=== PATIENT | female | born 1980 | race African-American/Black ===

== ENCOUNTER 2016-02-08 19:14 | Emergency (ER) ==
[2016-02-08] MEDS ORDERED: ZOFRAN IV ONE (19:22)
--- NOTE | 2016-02-08 19:43 | PROVIDER DOCUMENTATION ---
[id number] Abuse/Overdose - General Stated Complaint: OD Time Seen by Provider: 02/08/16 19:20 Source: family, RN/MD Allergies/Adverse Reactions: Allergies Allergy/AdvReac Type Severity Reaction Status Date / Time tramadol AdvReac Intermediate ITCHING Verified 10/06/15 17:40 Home Medications: Paroxetine HCl 1 tab PO DAILY 01/03/16 - History of Present Illness-Drug/Alcohol Nature of Presenting Problem: 35 year old F presents to the ED POV with a cc of altered mental status. Pt told RN that she took 15-20 Paxils. Mother at bedside stating that she talked to co-workers today and they said everything was fine. Mother states that she received a text message saying "everything would be better without her" and "I' m tired." This episode of drinking or use began:: just prior to arrival Severity: reports: moderate Review of Systems - Adult - REVIEW OF SYSTEMS - ADULT Constitutional: denies: chills, fever Eyes: reports: no symptoms reported Ears, Nose, Mouth & Throat: reports: no symptoms reported Cardiovascular: denies: chest pain, palpitations Respiratory: denies: cough, shortness of breath Gastrointestinal: denies: nausea, vomiting Genitourinary: reports: no symptoms reported Musculoskeletal: reports: no symptoms reported Integumentary: reports: no symptoms reported Neurological: reports: no symptoms reported Psychiatric: reports: no symptoms reported Endocrine: reports: no symptoms reported Hematologic/Lymphatic: reports: no symptoms reported Allergic/Immunologic: reports: no symptoms reported All Other Systems: Reviewed and Negative Past History - Adult - PAST MEDICAL HISTORY-ADULT Review of Records: reports: Nursing Assessment Review, Medications Reviewed Major Childhood Illnesses: reports: denies history Cardiovascular: reports: HTN Gastrointestinal: reports: cholelithiasis Obstetrical/Gynecological: reports: other (c section) Psychiatric: reports: depression (just started on paxil) - PRIOR SURGERIES/PROCEDURES Surgical/Procedure History: reports: - PRIOR HOSPITALIZATIONS Prior Hospitalizations: reports: for other non-related - IMMUNIZATION STATUS Childhood Immunizations: UTD Flu Vaccine: See Nurse Assessment - FAMILY HISTORY Family History: reviewed, not pertinent - SOCIAL HISTORY Smoking: non-smoker Substance Use: none/never Alcohol Use Frequency: occasionally Physical Exam-General - PHYSICAL EXAM-ADULT Initial Vital Signs Reviewed: Yes - CONSTITUTIONAL General Appearance: lethargic - RESPIRATORY Respiratory: chest non-tender, lungs clear, normal breath sounds - CARDIOVASCULAR Cardiovascular: normal peripheral pulses, regular rate, rhythm, no edema - GASTROINTESTINAL (ABDOMEN) Abdominal Exam: normal bowel sounds, non tender, soft - SKIN Integumentary: normal color, normal turgor, warm/dry - PSYCHIATRIC Psych/Mental Status: normal mood/affect, normal thought content, normal thought process, oriented x 3 Progress - PLAN OF CARE/RESULTS Progress/Plan/Lab Results: plan of care: imaging, labs, medications, EKG, psych consult Orders Category Date Time Status Cardiac Monitoring DIRECTED Care 02/08/16 19:21 Active Finger Stick Blood Sugar (ED) DIRECTED Care 02/08/16 19:21 Active Saline Loc NOW Care 02/08/16 19:21 Active CHEST-PORTABLE [RAD] Stat Exams 02/08/16 19:21 Taken HEAD W/O CONTRAST [CT] Stat Exams 02/08/16 19:21 Taken ABG [RESP] Routine Lab 02/08/16 20:05 Completed ACETAMINOPHEN [TDM] Stat Lab 02/08/16 19:20 Completed ALCOHOL BLOOD Stat Lab 02/08/16 19:20 Completed CBC WITH ELECTRONIC DIFF [HEME] Stat Lab 02/08/16 19:20 Completed CK PROFILE [SP CHEM] Stat Lab 02/08/16 19:20 Completed COMPREHENSIVE METABOLIC PANEL [CHEM] Stat Lab 02/08/16 19:20 Completed PROTIME WITH INR [COAG] Stat Lab 02/08/16 19:20 Completed PTT [COAG] Stat Lab 02/08/16 19:20 Completed SALICYLATES [TDM] Stat Lab 02/08/16 19:20 Completed TROPONIN T Stat Lab 02/08/16 19:20 Completed TSH Stat Lab 02/08/16 19:20 Completed URINALYSIS W/POSS RFLX CULT [URINALYSIS] Stat Lab 02/08/16 17:25 Completed URINE DRUG SCREEN Stat Lab 02/08/16 17:25 Completed Diphenhydramine [Benadryl] Med 02/08/16 20:08 Discontinued 25 mg IV NOW ONE Ketorolac [Toradol] Med 02/08/16 20:08 Discontinued 30 mg IV NOW ONE Ondansetron [Zofran] Med 02/08/16 19:22 Discontinued 8 mg IV NOW ONE Prochlorperazine [Compazine] Med 02/08/16 20:08 Discontinued 10 mg IV NOW ONE Pulse Oximetry Stat Oth 02/08/16 19:21 Active EKG [EKG] Stat Ther 02/08/16 19:21 Ordered Laboratory Tests 02/08/16 02/08/16 02/08/16 17:25 17:25 19:20 WBC RBC Hgb Hct MCV MCH MCHC RDW Std Deviation Plt Count MPV Immature Gran % (Auto) Neut % (Auto) Lymph % (Auto) [place] % (Auto) Eos % (Auto) Baso % (Auto) Immature Gran # (Auto) Neut # (Auto) Lymph # (Auto) [place] # (Auto) Eos # (Auto) Baso # (Auto) PT INR PTT (Actin FS) Specimen Type Sample Site pH pCO2 pO2 HCO3 Base Excess Oxyhemoglobin ABG O2 Sat (Calculated) ABG O2 Saturation ABG Carboxyhemoglobin ABG Methemoglobin Fernandez Test A-a O2 Difference Total Hemoglobin Lactate Blood Gas Modality FiO2 % Sodium Potassium Chloride Carbon Dioxide Anion Gap BUN Creatinine Estimated GFR/1.73 m2 BUN/Creatinine Ratio Glucose POC Glucose Calculated Osmolality Calcium Total Bilirubin AST ALT Alkaline Phosphatase Creatine Kinase Creatine Kinase Index CK-MB (CK-2) Troponin T Total Protein Albumin Globulin Albumin/Globulin Ratio TSH 3.48 Urine Source CATH Urine Color YELLOW Urine Turbidity CLEAR Urine pH 5.5 Ur Specific [place] 1.016 Urine Protein NEGATIVE Ur Glucose (Stick) NEGATIVE Ur Ketones (Stick) NEGATIVE Urine Blood MODERATE A Urine Nitrite NEGATIVE Urine Bilirubin NEGATIVE Urobilinogen Dipstick NORMAL Urine Leukocytes NEGATIVE Urine WBC (Auto) <10 Urine RBC (Auto) 20-40 A U Epithel Cells (Auto) <10 Urine Bacteria (Auto) NEGATIVE Salicylates Urine Opiates Screen NONE DETECTED Ur Oxycodone Screen NONE DETECTED Ur Methadone, Qual NONE DETECTED Acetaminophen Ur Barbiturates Screen NONE DETECTED Ur Phencyclidine Scrn NONE DETECTED Ur Amphetamines Screen NONE DETECTED U Benzodiazepines Scrn NONE DETECTED Urine Cocaine Screen NONE DETECTED U Cannabinoids Screen PRESUMPTIVE POSITIVE A Plasma/Serum Ethyl Alc 02/08/16 02/08/16 02/08/16 19:20 19:20 19:20 WBC 17.22 H RBC 5.65 H Hgb 14.9 Hct 42.6 MCV 75.4 L MCH 26.4 L MCHC 35.0 RDW Std Deviation 14.3 Plt Count 438 H MPV 9.0 Immature Gran % (Auto) 0.5 Neut % (Auto) 54.7 Lymph % (Auto) 35.7 [place] % (Auto) 7.4 Eos % (Auto) 1.4 Baso % (Auto) 0.3 Immature Gran # (Auto) 0.08 H Neut # (Auto) 9.42 H Lymph # (Auto) 6.15 H [place] # (Auto) 1.27 H Eos # (Auto) 0.24 Baso # (Auto) 0.06 PT INR PTT (Actin FS) Specimen Type Sample Site pH pCO2 pO2 HCO3 Base Excess Oxyhemoglobin ABG O2 Sat (Calculated) ABG O2 Saturation ABG Carboxyhemoglobin ABG Methemoglobin Fernandez Test A-a O2 Difference Total Hemoglobin Lactate Blood Gas Modality FiO2 % Sodium 140 Potassium 3.8 Chloride 100 Carbon Dioxide 21 L Anion Gap 19 BUN 11 Creatinine 0.9 Estimated GFR/1.73 m2 > 60 BUN/Creatinine Ratio 12 Glucose 86 POC Glucose Calculated Osmolality 278 Calcium 9.8 Total Bilirubin 0.22 AST 18 ALT 15 Alkaline Phosphatase 82 Creatine Kinase 311 H Creatine Kinase Index 0.6 CK-MB (CK-2) 1.80 Troponin T Total Protein 8.0 Albumin 4.2 Globulin 3.8 Albumin/Globulin Ratio 1.1 TSH Urine Source Urine Color Urine Turbidity Urine pH Ur Specific [place] Urine Protein Ur Glucose (Stick) Ur Ketones (Stick) Urine Blood Urine Nitrite Urine Bilirubin Urobilinogen Dipstick Urine Leukocytes Urine WBC (Auto) Urine RBC (Auto) U Epithel Cells (Auto) Urine Bacteria (Auto) Salicylates < 3.00 L Urine Opiates Screen Ur Oxycodone Screen Ur Methadone, Qual Acetaminophen < 1.2 L Ur Barbiturates Screen Ur Phencyclidine Scrn Ur Amphetamines Screen U Benzodiazepines Scrn Urine Cocaine Screen U Cannabinoids Screen Plasma/Serum Ethyl Alc 02/08/16 02/08/16 02/08/16 19:20 19:20 20:05 WBC RBC Hgb Hct MCV MCH MCHC RDW Std Deviation Plt Count MPV Immature Gran % (Auto) Neut % (Auto) Lymph % (Auto) [place] % (Auto) Eos % (Auto) Baso % (Auto) Immature Gran # (Auto) Neut # (Auto) Lymph # (Auto) [place] # (Auto) Eos # (Auto) Baso # (Auto) PT 10.1 INR 0.95 PTT (Actin FS) 24.9 Specimen Type VENOUS Sample Site R RADIAL pH 7.46 H pCO2 36 pO2 41 L* HCO3 25.8 Base Excess 2.0 Oxyhemoglobin 74.9 L* ABG O2 Sat (Calculated) 16.0 ABG O2 Saturation 78.6 L ABG Carboxyhemoglobin 3.10 H ABG Methemoglobin 1.5 Fernandez Test YES A-a O2 Difference 64.0 Total Hemoglobin 15.2 Lactate 1.40 Blood Gas Modality ROOM AIR FiO2 % 21.0 Sodium Potassium Chloride Carbon Dioxide Anion Gap BUN Creatinine Estimated GFR/1.73 m2 BUN/Creatinine Ratio Glucose POC Glucose Calculated Osmolality Calcium Total Bilirubin AST ALT Alkaline Phosphatase Creatine Kinase Creatine Kinase Index CK-MB (CK-2) Troponin T < 0.010 Total Protein Albumin Globulin Albumin/Globulin Ratio TSH Urine Source Urine Color Urine Turbidity Urine pH Ur Specific [place] Urine Protein Ur Glucose (Stick) Ur Ketones (Stick) Urine Blood Urine Nitrite Urine Bilirubin Urobilinogen Dipstick Urine Leukocytes Urine WBC (Auto) Urine RBC (Auto) U Epithel Cells (Auto) Urine Bacteria (Auto) Salicylates Urine Opiates Screen Ur Oxycodone Screen Ur Methadone, Qual Acetaminophen Ur Barbiturates Screen Ur Phencyclidine Scrn Ur Amphetamines Screen U Benzodiazepines Scrn Urine Cocaine Screen U Cannabinoids Screen Plasma/Serum Ethyl Alc 02/08/16 20:06 WBC RBC Hgb Hct MCV MCH MCHC RDW Std Deviation Plt Count MPV Immature Gran % (Auto) Neut % (Auto) Lymph % (Auto) [place] % (Auto) Eos % (Auto) Baso % (Auto) Immature Gran # (Auto) Neut # (Auto) Lymph # (Auto) [place] # (Auto) Eos # (Auto) Baso # (Auto) PT INR PTT (Actin FS) Specimen Type Sample Site pH pCO2 pO2 HCO3 Base Excess Oxyhemoglobin ABG O2 Sat (Calculated) ABG O2 Saturation ABG Carboxyhemoglobin ABG Methemoglobin Fernandez Test A-a O2 Difference Total Hemoglobin Lactate Blood Gas Modality FiO2 % Sodium Potassium Chloride Carbon Dioxide Anion Gap BUN Creatinine Estimated GFR/1.73 m2 BUN/Creatinine Ratio Glucose POC Glucose 82 Calculated Osmolality Calcium Total Bilirubin AST ALT Alkaline Phosphatase Creatine Kinase Creatine Kinase Index CK-MB (CK-2) Troponin T Total Protein Albumin Globulin Albumin/Globulin Ratio TSH Urine Source Urine Color Urine Turbidity Urine pH Ur Specific [place] Urine Protein Ur Glucose (Stick) Ur Ketones (Stick) Urine Blood Urine Nitrite Urine Bilirubin Urobilinogen Dipstick Urine Leukocytes Urine WBC (Auto) Urine RBC (Auto) U Epithel Cells (Auto) Urine Bacteria (Auto) Salicylates Urine Opiates Screen Ur Oxycodone Screen Ur Methadone, Qual Acetaminophen Ur Barbiturates Screen Ur Phencyclidine Scrn Ur Amphetamines Screen U Benzodiazepines Scrn Urine Cocaine Screen U Cannabinoids Screen Plasma/Serum Ethyl Alc Vital Signs - 24 hr 02/08/16 19:46 Pulse Rate 114 H Respiratory 19 Rate Blood Pressure 142/92 O2 Sat by Pulse 100 Oximetry Pt given results and will be d/c home w/o rx to follow up with PCP. Pt verbally understood instructions. PT remained clinically stable throughout the course of the ED stay and will return if symptoms worsen. - REASSESSMENT Reassessment #1 Time Reassessed: 20:08 (Pt c/o a headache behind bilateral eye that reminds her of a migraine. PT is photophobic with towel over eye. Benadryl, Compazine, and Tordol will be ordered. ) Reassessment #2 Time Reassessed: 20:42 (headache resolved, pt awake and alert talking normally. ) Status: improving - PSYCHIATRIC Psych patient progress: pt will sign contract for safety and be discharged home with mother. - EKG 1 Time of EKG reading by physician:: 19:40 EKG Read and Signed by:: Jesús Franklin EKG Interpretation (*Must complete 3 of following elements*): Normal Rate: 126 Rhythm: sinus tachycardia [place]: normal - XRAY 1 XRAY Study: Chest Impression: Normal XRAY Interpretation: NAP: Dr. Franklin - CT/MRI 1 CT Study: Head (NAP intracranially. Bilateral miaxillary and right ethmoid sinus mucosal dz.: Dr. Sheffield.) - CONSULTS/PCP/HOSPITALIST Notification #1 *Consult/PCP/Hospitalist*: DMW Time Discussed: 00:07 Consult Disposition: other (pt would like to contract for safety and will be sent home with mother) Departure - Departure Time of Disposition Order: 00:25 DIAGNOSIS: Overdose Qualifiers: Encounter type: initial encounter Injury intent: intentional self-harm Qualified Code(s): T50.902A - Poisoning by unspecified drugs, medicaments and biological substances, intentional self-harm, initial encounter Disposition: HOME 01 Certified Medical Emergency: Emergent Condition: Good Attestation - Scribe Verification/Attestation Scribe:: Lamar Botello Acting as Scribe for:: Jesús Franklin Scribe documention review:: This chart was documented by a scribe and accurately reflects the service the provider performed and the decisions made by the provider. Physician Attestation - Physician Attestation I, the provider, attest to the following statement:: Jesús Franklin Physician documentation Attestation:: This documentation recorded by the scribe accurately reflects the service I personally performed and the decisions made by me.
[2016-02-08 19:58] LABS: MANUAL DIFF NEEDED? NO
[2016-02-08 19:58] LABS: URINE CULTURE NEEDED? NO; URINE MICRO REVIEW NEEDED? NO; URINE SOURCE CATH
[2016-02-08 20:01] LABS: BASO% 0.3 % (0.0-0.8); EOS# 0.24 X1000 (0.0-0.7); EOS% 1.4 % (0.0-10.0); HEMATOCRIT 42.6 % (37.0-47.0); HEMOGLOBIN 14.9 g/dL (12.0-16.0); IMM GRAN# 0.08 X1000 (0.0-0.04); IMM GRAN% 0.5 % (0.0-0.5); LYMPH# 6.15 X1000 (1.2-3.4); LYMPH% 35.7 % (20.5-51.1); MCH 26.4 PG (27-31); MCV 75.4 FL (81-99); MONO# 1.27 X1000 (0.11-0.59); MONO% 7.4 % (1.7-9.3); NEUT% 54.7 % (42.2-75.2); PLT 438 X1000 (130-400); RBC 5.65 XMIL (4.2-5.4)
[2016-02-08 20:04] LABS: BILIRUBIN URINE NEGATIVE (NEGATIVE); BLOOD URINE MODERATE (NEGATIVE); COLOR YELLOW; GLUCOSE URINE NEGATIVE (NEGATIVE); LEUKOCYTES URINE NEGATIVE (NEGATIVE); NITRITE URINE NEGATIVE (NEGATIVE); PH URINE 5.5; PROTEIN URINE NEGATIVE (NEGATIVE); SP GRAVITY URINE 1.016; TURBIDITY URINE CLEAR (CLEAR); UROBILINOGEN URINE NORMAL (NORMAL)
[2016-02-08 20:05] LABS: UR EPITHELIAL CELLS <10 /HPF (<10); URINE BACTERIA NEGATIVE /HPF; URINE RBC 20-40 /HPF (<10); URINE WBC <10 /HPF (<10)
[2016-02-08] MEDS ORDERED: BENADRYL IV ONE (20:08)
[2016-02-08] MEDS ORDERED: COMPAZINE IV ONE (20:08)
[2016-02-08] MEDS ORDERED: TORADOL IV ONE (20:08)
[2016-02-08 20:10] LABS: INR 0.95; PROTIME 10.1 Seconds (9.2-11.7); PTT 24.9 Seconds (22.0-36.0)
[2016-02-08 20:11] LABS: ALLEN TEST YES; DRAW SITE R RADIAL; METHB 1.5 % (0.0-1.5); PCO2(98.6) 36 mmHg (35-45); PO2(98.6) 41 mmHg (60-100); SAMPLE BLOOD; SAO2 78.6 % (95.0-100.0); THB 15.2 g/dL (11.5-17.4); pH(98.6) 7.46 (7.35-7.45)
[2016-02-08 20:21] LABS: ACETAMINOPHEN < 1.2 ug/mL (10-30); AGAP 19; ALBUMIN 4.2 g/dL (3.5-5.0); ALKALINE PHOSPHATASE 82 U/L (32-104); BUN 11 mg/dL (8-22); CALCIUM 9.8 mg/dL (8.8-10.2); CHLORIDE 100 mmol/L (98-107); CK PROFILE 311 U/L (24-173); COSMO 278; GOT 18 U/L (10-30); GPT 15 U/L (10-36); POTASSIUM 3.8 mmol/L (3.5-5.1); SODIUM 140 mmol/L (136-145); TCO2 21 mmol/L (25-35); TOTAL BILIRUBIN 0.22 mg/dL (0.20-1.00)
[2016-02-08 20:32] LABS: UR AMPHETAMINES QUAL NONE DETECTED (NONE DETECT); UR BARBITUATES QUAL NONE DETECTED (NONE DETECT); UR BENZODIAZEPIN QUAL NONE DETECTED (NONE DETECT); UR CANNABINOIDS QUAL PRESUMPTIVE POSITIVE (NONE DETECT); UR COCAINE QUAL NONE DETECTED (NONE DETECT); UR METHADONE QUAL NONE DETECTED (NONE DETECT); UR OPIATES QUAL NONE DETECTED (NONE DETECT); UR OXYCODONE QUAL NONE DETECTED (NONE DETECT); UR PCP QUAL NONE DETECTED (NONE DETECT)
[2016-02-08 20:37] LABS: CK INDEX 0.6 (0.0-2.5)
[2016-02-08 21:38] LABS: BLOOD TYPE VENOUS; MODALITY ROOM AIR
[2016-02-09 00:53] VITALS: BP 132/83
--- NOTE | 2016-02-09 08:23 | Diag Imaging Result Document ---
PROCEDURE NAME: HEAD W/O CONTRAST - 02/08/[address], 02/08/2016: COMPARISON: 01/03/2016. FINDINGS: The ventricles and sulci are normal in size and contour. No intracranial mass or hemorrhage. The skull is intact. There is sinusitis of the maxillary sinuses right greater than left, and also some ethmoid sinuses. IMPRESSION: Sinusitis. No intracranial abnormality.
--- NOTE | 2016-02-09 08:37 | Diag Imaging Result Document ---
PROCEDURE NAME: CHEST-PORTABLE - 02/08/2016 SINGLE FRONTAL RADIOGRAPH OF THE CHEST: COMPARISON: 12/23/2014. FINDINGS: The lungs are grossly clear. There is no discrete pleural fluid collection or pneumothorax. The cardiomediastinal silhouette and upper airway are grossly unremarkable. IMPRESSION: No evidence of acute chest pathology.
== END 2016-02-09 00:50 | disposition home or self-care (01) ==
LOC: ED 19:14
DX: T43.221A Poisoning by selective serotonin reuptake inhibitors, accidental (unintentional), initial encounter (principal); R41.82 Altered mental status, unspecified; R53.83 Other fatigue; R51 Headache; H53.149 Visual discomfort, unspecified; I10 Essential (primary) hypertension; F32.9 Major depressive disorder, single episode, unspecified; Z79.899 Other long term (current) drug therapy
CPT/HCPCS: 70450; 71010; 80053; 81001; 82550; 82553; 82805; 82948; 84443; 84484; 85025; 85610; 85730; 93005; 96374; 96375; G0480; J0780; J1200; J1885; J2405

== ENCOUNTER 2016-04-24 05:48 | Emergency (ER) ==
[2016-04-24 05:55] VITALS: BP 155/92
--- NOTE | 2016-04-24 06:31 | PROVIDER DOCUMENTATION ---
HPI-General Adult - General Chief Complaint: B/P Problems Stated Complaint: HIGH BP Time Seen by Provider: 04/24/16 06:06 Source: patient Allergies/Adverse Reactions: Patient Allergies Allergy/AdvReac Type Severity Reaction Status Date / Time tramadol AdvReac Intermediate ITCHING Verified 04/24/16 06:00 Home Medications: Home Medication List Medication Instructions Recorded Confirmed Last Taken Type Promethazine [Phenergan] 25 mg PO Q6H PRN PRN #20 tablet 03/26/16 04/24/1604/24 Rx Amlodipine Besylate/Benazepril 1 each PO DAILY 04/24/16 04/24/16 04/24/16 History [Amlodipine-Benazepril 5-10 mg] - History of Present Illness -Gen Adult Nature of Presenting Problems: High blood pressure issues, usually wakes up at 3 AM and takes blood pressure medicine and goes to work. [place] dizzy at work and reported high blood pressure this morning even after taking her medication. Denies any chest pain, palpitations, SOB, or LOC. 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 denies: arm pain, chest pain, headaches, shortness of breath Similar Symptoms Previously?: Yes (Has had high blood pressure issues 3 times this year) Recently seen or treated by another doctor?: Yes (Family doctor recently switched her to one time a day blood pressure pill) Review of Systems - Adult - REVIEW OF SYSTEMS - ADULT Constitutional: reports: see HPI. denies: fever, night sweats Eyes: reports: no symptoms reported Ears, Nose, Mouth & Throat: reports: no symptoms reported Cardiovascular: reports: see HPI. denies: chest pain, edema, palpitations, syncope Respiratory: denies: dyspnea on exertion, shortness of breath Gastrointestinal: reports: no symptoms reported Genitourinary: reports: no symptoms reported Musculoskeletal: reports: no symptoms reported Integumentary: reports: no symptoms reported Neurological: reports: no symptoms reported Psychiatric: reports: no symptoms reported Endocrine: reports: no symptoms reported Hematologic/Lymphatic: reports: no symptoms reported Allergic/Immunologic: reports: no symptoms reported All Other Systems: Reviewed and Negative Past History - Adult - PAST MEDICAL HISTORY-ADULT Review of Records: reports: Old Records Reviewed, Nursing Assessment Review, Medications Reviewed, Social history reviewed & non-contributory. Major Childhood Illnesses: reports: denies history Cardiovascular: reports: HTN Respiratory: reports: denies history Gastrointestinal: reports: cholelithiasis Obstetrical/Gynecological: reports: other (c section frequent cycles) Genitourinary: reports: denies history Musculoskeletal: reports: denies history Neurological: reports: denies history Psychiatric: reports: depression (just started on paxil) Endocrine/Immune: reports: denies history Other Conditions: reports: denies history - PRIOR SURGERIES/PROCEDURES Surgical/Procedure History: reports: - PRIOR HOSPITALIZATIONS Prior Hospitalizations: reports: for other non-related - IMMUNIZATION STATUS Childhood Immunizations: UTD Flu Vaccine: See Nurse Assessment - FAMILY HISTORY Family History: reviewed, not pertinent - SOCIAL HISTORY Smoking: denies Provider spent 3-5 mins advising pt. on dangers of tobacco.: Discussed manners to quit use, and f/u contacts for add'l counseling. Substance Use: none/never Living Situation: family Physical Exam-General - PHYSICAL EXAM-ADULT Initial Vital Signs Reviewed: Yes - CONSTITUTIONAL General Appearance: appears well, alert, no apparent distress - EYES Eyes: PERRL/EOMI - HEAD, EARS, NOSE, MOUTH & THROAT HENMT: normocephalic/atraumatic - NECK Neck: non-tender, supple, normal inspection - RESPIRATORY Respiratory: chest non-tender, lungs clear, normal breath sounds, no pleuratic chest pain, no respiratory distress, no accessory muscle use - CARDIOVASCULAR Cardiovascular: regular rate, rhythm, no edema, no gallop, no JVD - GASTROINTESTINAL (ABDOMEN) Abdominal Exam: soft - MUSCULOSKELETAL Back Exam: normal inspection Extremity: normal range of motion, non-tender, normal gait - SKIN Integumentary: normal color, normal turgor - NEUROLOGIC Neurologic: cashier self service gasoline II-XII nml as tested, grossly normal, no motor/sensory deficits . negative: facial droop, negative romberg's sign - PSYCHIATRIC Psych/Mental Status: normal mood/affect, normal thought content, normal thought process, oriented x 3 Progress - REASSESSMENT Reassessment #1 Time Reassessed: 06:42 (pt at present w/good bp control/no neuro deficits ....pt family life counselor to increase bp maeds to twice a day if systolic bp>155) Status: improving Departure - Departure Time of Disposition Order: 06:43 DIAGNOSIS: HTN (hypertension) with goal to be determined, Dizziness Disposition: HOME 01 Certified Medical Emergency: Emergent Condition: Stable Additional Instructions: ED Follow Up Instructions:take bp meds twice /day as instructed You have been treated by a care provider in the Emergency Department. These instructions are being provided to you so you can have an understanding of how to care for yourself upon discharge. Upon discharge from the Emergency Department, you are responsible for making arrangements for follow-up care by a physician of your choice. Take all prescribed medications as directed. Return to the Emergency Department immediately for any new or worsening symptoms. You may call the Physician Referral phone number at [phone] to obtain a list of Physicians who are taking new patients. Referrals: None,PCP [Primary Care Provider] -
== END 2016-04-24 06:49 | disposition home or self-care (01) ==
LOC: ED 05:48
DX: I10 Essential (primary) hypertension (principal); R42 Dizziness and giddiness; Z79.899 Other long term (current) drug therapy